=== PATIENT | male | born 1960 | race Caucasian/White ===

== ENCOUNTER 2017-03-15 17:00 | Emergency (ER) | payer OTHER ==
[2017-03-15] MEDS ORDERED: Sodium Chloride 0.9% 1,000 ML IV ONE (17:13)
--- NOTE | 2017-03-15 17:13 | ED Physician Chart ---
ED Chief Complaint/HPI - Patient Information Date Seen:: 03/15/17 Time Seen:: 17:00 Chief Complaint:: ALOC History of Present Illness:: onset x 3 hours of ALOC, AMS, and decreased activity due to ETOH drinking; pt denies LOC, trauma, H/As, neck pain, C/P, SOB, Abd. Pain, A/N/V/D/C, fever, chills, or urinary s/s Historian:: Patient, EMS Review:: Nurse's Note Reviewed, EMS run form Reviewed ED Review of Systems - Review of Systems General/Constitutional: No fever, No chills, No weight loss, No weakness, No diaphoresis, No edema, No loss of appetite Skin: No skin lesions, No rash, No bruising Head: No headache, No light-headedness Eyes: No loss of vision, No pain, No diplopia ENT: No earache, No nasal drainage, No sore throat, No tinnitus Neck: No neck pain, No swelling, No thyromegaly, No stiffness, No mass noted Cardio Vascular: No chest pain, No palpitations, No PND, No orthopnea, No edema Pulmonary: No SOB, No cough, No sputum, No wheezing GI: No nausea, No vomiting, No diarrhea, No pain, No melena, No hematochezia, No constipation, No hematemesis G/U: No dysuria, No frequency, No hematuria, No nacturia Musculoskeletal: No bone or joint pain, No back pain, No muscle pain Endocrine: No polyuria, No polydipsia Psychiatric: No prior psych history, No depression, No anxiety, No suicidal ideation, No homicidal ideation, No auditory hallucination, No visual hallucination Hematopoietic: No bruising, No lymphadenopathy Allergic/Immuno: No urticaria, No angioedema Neurological: No syncope, No focal symptoms, No weakness, No paresthesia, No headache, No seizure, No dizziness, No confusion, No vertigo ED Past Medical History - Past Medical History Obtainable: Yes Past Medical History: HTN Family History: HTN Social History: Smoker, Alcohol, No Drug Use, Single Surgical History: None Psychiatricy History: None Medication: Reviewed ED Physical Exam - Physical Examination General/Constitutional: Awake, Well-developed, well-nourished, Alert, No distress, GCS 15, Non-toxic appearing, Ambulatory Head: Atraumatic Eyes: Lids, conjuctiva normal, PERRL, EOMI Skin: Nl inspection, No rash, No skin lesions, No ecchymosis, Well hydrated, No lymphadenopathy ENMT: External ears, nose nl, TM canals nl, Nasal exam nl, Lips, teeth, gums nl , Oropharynx nl, Tonsils nl Neck: Nontender, Full ROM w/o pain, No JVD, No nuchal rigidity, No bruit, No mass, No stridor Respiratory: Nl effort/Exclusion, Clear to Auscultation, No Wheeze/Rhonchi/Rales Cardio Vascular: RRR, No murmur, gallop, rubs, NL S1 S2, Carotid/Femoral/Distal pulses equal bilaterally GI: No tenderness/rebounding/guarding, No organomegaly, No hernia, Normal BS's, Nondistended, No mass/bruits, No McBurney tenderness : No CVA tenderness Extremities: No tenderness or effusion, Full ROM, normal strength in all extremities, No edema, Normal digits & nails Neuro/Psych: Alert/oriented, DTR's symmetric, Normal sensory exam, Normal motor strength, Judgement/insight normal, Mood normal, Normal gait, No focal deficits Misc: Normal back, No paraspinal tenderness ED Septic Shock - . Is Septic Shock (SBP<90, OR Lactate>4 mmol\L) present?: No
[2017-03-15 18:00] LABS: % EOSINOPHILS 0.8 % (0.0-5.0); % LYMPHOCYTES 30.4 % (20.0-50.0); % MONOCYTES 6.8 % (2.0-10.0); BASOPHILE ABSOLUTE 0.1 Th/cumm (0-0.2); EOSINOPHILE ABSOLUTE 0.1 Th/cmm (0.1-0.4); HEMATOCRIT 41.3 % (41.0-60); MEAN CELL VOLUME 92.9 fl (80-99); MEAN CORPUSCULAR HEMOGLOBIN 31.6 pg (26.0-30.0); MEAN PLATELET VOLUME 7.8 fl; MONOCYTE ABSOLUTE 0.5 Th/cmm (0.3-1.0); PLATELET COUNT 260 Th/cmm (150-400); RED BLOOD COUNT 4.45 Mil/cmm (4.30-5.70); RED CELL DISTRIBUTION WIDTH 14.6 % (11.5-20.0); WHITE BLOOD COUNT 6.7 Th/cmm (4.8-10.8)
[2017-03-15 18:54] LABS: ALB/GLOB RATIO 1.4 (1.0-1.8); ALBUMIN 4.3 gm/dL (4.2-5.5); ALKALINE PHOSPHATASE 66 U/L (34-104); ANION GAP 16.3 (7.0-16.0); BILIRUBIN,TOTAL 0.4 mg/dL (0.3-1.0); BUN - UREA NITROGEN 13 mg/dL (7-25); CALCIUM SERUM 8.7 mg/dL (8.6-10.3); CARBON DIOXIDE 26.7 mEq/L (21.0-31.0); CHLORIDE 100 mEq/L (98-107); CREATININE - SERUM 0.8 mg/dL (0.7-1.3); GFR AFRICAN-AMERICAN > 60.0 ml/min (>90); GFR NON AFRICAN-AMERICAN > 60.0 ml/min; GLUCOSE 163 mg/dL (70-105); SGOT 37 U/L (13-39); SGPT/ALT 29 U/L (7-52); SODIUM SERUM 140 mEq/L (136-145); TOTAL PROTEIN,SERUM 7.4 gm/dL (6.0-8.3)
== END 2017-03-15 19:45 | disposition left against medical advice (07) ==
LOC: ER 17:00
DX: I10 Essential (primary) hypertension (principal); F17.200 Nicotine dependence, unspecified, uncomplicated; Z88.0 Allergy status to penicillin
CPT/HCPCS: 36415-UA; 80053-TC; 80320-TC; 85025-TC; J7030

== ENCOUNTER 2017-09-16 14:18 | Emergency (ER) | payer OTHER ==
--- NOTE | 2017-09-16 15:24 | ED Physician Chart ---
ED Chief Complaint/HPI - Patient Information Date Seen:: 09/16/17 Time Seen:: 14:50 Chief Complaint:: etoh intoxication Allergies:: Allergies Allergy/AdvReac Type Severity Reaction Status Date / Time morphine Allergy Verified 09/16/17 14:54 Penicillins [PCN] Allergy Verified 09/16/17 14:54 57 yr old male states drinking one fifth whiskey a day for the last few months pt states he has been hitting the bottle for the last few onths he says he uses alcohol to hide his depression and has been homeless and down and out Vitals:: Vital Signs - 8 hr 09/16/17 14:48 Temp 98.9 F HR 115 RR 16 BP 131/89 O2 Sat % 95 ED Review of Systems - Review of Systems General/Constitutional: No fever, No chills, No weight loss, No weakness, No diaphoresis, No edema, No loss of appetite Skin: No skin lesions, No rash, No bruising Head: No headache, No light-headedness Eyes: No loss of vision, No pain, No diplopia ENT: No earache, No nasal drainage, No sore throat, No tinnitus Neck: No neck pain, No swelling, No thyromegaly, No stiffness, No mass noted Cardio Vascular: No chest pain, No palpitations, No PND, No orthopnea, No edema Pulmonary: No SOB, No cough, No sputum, No wheezing GI: No nausea, No vomiting, No diarrhea, No pain, No melena, No hematochezia, No constipation, No hematemesis G/U: No dysuria, No frequency, No hematuria Musculoskeletal: No bone or joint pain, No back pain, No muscle pain Endocrine: No polyuria, No polydipsia Psychiatric: No prior psych history, No depression, No anxiety, No suicidal ideation Hematopoietic: No bruising, No lymphadenopathy Allergic/Immuno: No urticaria, No angioedema Neurological: Weakness, Headache ED Past Medical History - Past Medical History Past Medical History: HTN Family Medical History - Family Member Mother History Unknown: Yes ED Physical Exam - Physical Examination General/Constitutional: Awake (intoxicated disheveled) Head: Atraumatic Eyes: Lids, conjuctiva normal Skin: No rash ENMT: External ears, nose nl Neck: Nontender Respiratory: Nl effort/Exclusion Cardio Vascular: RRR, No murmur, gallop, rubs GI: No tenderness/rebounding/guarding : No CVA tenderness Extremities: Full ROM Neuro/Psych: Alert/oriented Other:: etoh intoxicated and disheveled ED Assessment - Assessment General Assessment: etoh intoxication ED Septic Shock - . Is Septic Shock (SBP<90, OR Lactate>4 mmol\L) present?: No - <6hrs of presentation: Vital Signs: Vital Signs - 8 hr 09/16/17 14:48 Temp 98.9 F HR 115 RR 16 BP 131/89 O2 Sat % 95 ED Reassessment (Disposition) - Diagnosis Diagnosis:: etoh intoxication depression - Patient Disposition Condition at Disposition:: Improved
[2017-09-16] MEDS ORDERED: Sodium Chloride 0.9% 1,000 ML IV ONE ×3 (15:28→17:54)
[2017-09-16] MEDS ORDERED: Multivitamin Inj 10 ML, Thiamine HCL 100 MG, Magnesium Sulfate 2 GM, Folic Acid 1 MG in... IV ONE (15:30)
[2017-09-16 15:39] LABS: % BASOPHILS 0.3 % (0.0-2.0); % EOSINOPHILS 0.7 % (0.0-5.0); % LYMPHOCYTES 33.1 % (20.0-50.0); % MONOCYTES 5.8 % (2.0-10.0); % NEUTROPHILS 60.1 % (40.0-80.0); HEMATOCRIT 43.5 % (41.0-60); LYMPHOCYTE ABSOLUTE 1.8 Th/cmm (1.5-3.0); MEAN CELL VOLUME 93.5 fl (80-99); MEAN CORPUSCULAR HEMOGLOBIN 32.2 pg (26.0-30.0); MEAN CORPUSCULAR HGB CONC 34.4 pg (28.0-36.0); MEAN PLATELET VOLUME 7.3 fl; MONOCYTE ABSOLUTE 0.3 Th/cmm (0.3-1.0); NEUTROPHILE ABSOLUTE 3.3 Th/cmm (1.8-8.0); PLATELET COUNT 241 Th/cmm (150-400); RED BLOOD COUNT 4.65 Mil/cmm (4.30-5.70); RED CELL DISTRIBUTION WIDTH 13.7 % (11.5-20.0); WHITE BLOOD COUNT 5.4 Th/cmm (4.8-10.8)
[2017-09-16 15:54] LABS: ALB/GLOB RATIO 1.3 (1.0-1.8); ALBUMIN 4.4 gm/dL (4.2-5.5); ALKALINE PHOSPHATASE 63 U/L (34-104); ANION GAP 20.8 (7.0-16.0); BILIRUBIN,TOTAL 0.4 mg/dL (0.3-1.0); BUN - UREA NITROGEN 14 mg/dL (7-25); CALCIUM SERUM 8.8 mg/dL (8.6-10.3); CARBON DIOXIDE 24.3 mEq/L (21.0-31.0); CHLORIDE 99 mEq/L (98-107); CREATININE - SERUM 0.9 mg/dL (0.7-1.3); CREATININE KINASE 146 U/L (30-223); GFR AFRICAN-AMERICAN > 60.0 ml/min (>90); GFR NON AFRICAN-AMERICAN > 60.0 ml/min; GLUCOSE 74 mg/dL (70-105); POTASSIUM SERUM 3.1 mEq/L (3.5-5.1); SGOT 104 U/L (13-39); SGPT/ALT 83 U/L (7-52); SODIUM SERUM 141 mEq/L (136-145); TOTAL PROTEIN,SERUM 7.7 gm/dL (6.0-8.3)
[2017-09-16] MEDS ORDERED: Multivitamin Inj 10 mL Vial IV ONE (16:16)
[2017-09-16 17:41] LABS: URINE SOURCE CLEAN C
[2017-09-16] MEDS ORDERED: Potassium Chloride 20 mEq ER Tab PO ONE ×2 (17:41→18:03)
[2017-09-16 17:49] LABS: URINE BILIRUBIN NEGATIVE (NEGATIVE); URINE BLOOD TRACE (NEGATIVE); URINE GLUCOSE (UA) NEGATIVE (NEGATIVE); URINE KETONE 40 mg/dL (NEGATIVE); URINE LEUKOCYTE ESTERASE NEGATIVE (NEGATIVE); URINE MICROSCOPIC INDICATED? YES; URINE NITRATE NEGATIVE (NEGATIVE); URINE PROTEIN 100 mg/dL (NEGATIVE); URINE UROBILINOGEN 0.2 E.U./dL (0.2 - 1.0)
[2017-09-16 17:50] LABS: URINE CLARITY CLEAR (CLEAR); URINE COLOR YELLOW
[2017-09-16 17:55] LABS: URINE BACTERIA OCCASIONAL /hpf (NONE SEEN); URINE EPITHELIAL CELLS FEW /lpf (FEW); URINE WBC 0-2 /hpf (0-5)
[2017-09-16] MEDS ORDERED: Acetaminophen 500 MG TAB PO ONE (22:04)
[2017-09-16] MEDS ORDERED: Acetaminophen 500 MG TAB ONE (22:07)
--- NOTE | 2017-09-17 08:29 | Diagnostic Imaging Report ---
CHEST X-RAY: AP view INDICATION: Shortness of breath COMPARISON: None FINDINGS: The patient is rotated limiting the examination. There is elevation of the right hemidiaphragm and accentuation of the right lower lobe lung markings. No focal consolidation or effusions. Heart size is normal. Degenerative changes of the spine are noted. IMPRESSION: Elevation of the right hemidiaphragm with accentuation of the right lower lung zone markings which may be due to atelectasis. Faint infiltrate is less likely. Note exam was limited due to rotation. When clinically diffusible PA and lateral views of the chest may be obtained for further assessment.
[2017-09-17] MEDS ORDERED: Potassium Chloride 20 mEq ER Tab PO SCH (09:00)
[2017-09-17 10:20] LABS: AMPHETAMINE URINE NEGATIVE (NEGATIVE)
[2017-09-17 10:21] LABS: BARBITURATES URINE NEGATIVE (NEGATIVE); BENZODIAZEPINES QUAL URINE NEGATIVE (NEGATIVE); CANNABINOID THC NEGATIVE (NEGATIVE); COCAINE METABOLITE QUAL URINE NEGATIVE (NEGATIVE); METHADONE URINE NEGATIVE (NEGATIVE); METHAMPHETAMINES QUAL URINE NEGATIVE (NEGATIVE); OPIATES (MORPHINE) QUAL. URINE NEGATIVE (NEGATIVE); PHENCYCLIDINE (PCP) URINE NEGATIVE (NEGATIVE)
[2017-09-17 15:09] LABS: TRICYCLICS (TCA) QUAL. URINE NEGATIVE (NEGATIVE)
== END 2017-09-17 13:15 | disposition home or self-care (01) ==
LOC: ER 14:18
DX: F10.129 Alcohol abuse with intoxication, unspecified (principal); F32.9 Major depressive disorder, single episode, unspecified; E87.6 Hypokalemia; R53.83 Other fatigue; E87.2 Acidosis; I10 Essential (primary) hypertension; Z59.0 Homelessness; Z88.0 Allergy status to penicillin; Z88.5 Allergy status to narcotic agent
CPT/HCPCS: 99285; 96374; 71045; 84484; 36415 ×2; 83605 ×4; 80307; 85025; 81001; 80320; 82550; 80053; 87040 ×2; J2060; J3411; J3475; J7030; X6598; Z7610

== ENCOUNTER 2018-08-07 16:57 | Emergency (ER) | payer OTHER ==
--- NOTE | 2018-08-07 17:41 | ED Physician Chart ---
ED Chief Complaint/HPI - Patient Information Date Seen:: 08/07/18 Time Seen:: 17:22 Chief Complaint:: Pt is intoxicated with ethanol History of Present Illness:: Brought in by ambulance because pt has been intoxicated with ethanol. Pt is alert and oriented x 3. Pt speaks clearly and denies any bodily pain or discomfort. Pt denies any depressed mood. No S.I. or H.I. Pt is not fully cooperative; thus, H & P are limited. Addendum: His sister Ms Liberty Rojas later arrived at the ER, reporting that pt phoned his cousin Florencio at about 1 pm today. Pt expressed suicidal ideation with plan to [place] to [place] himself. Allergies:: Allergies Allergy/AdvReac Type Severity Reaction Status Date / Time morphine Allergy Verified 09/16/17 14:54 Penicillins [PCN] Allergy Verified 09/16/17 14:54 Vitals:: see Nurse Note. Historian:: Patient Family MD/PCP:: unknown LMP:: N/A Review:: Nurse's Note Reviewed ED Review of Systems - Review of Systems General/Constitutional: Other (Pt does not cooperate for ROS.) ED Past Medical History - Past Medical History Past Medical History: Other (Pt does not cooperate to provide info on PMH.) Family History: Other (Pt does not cooperate to provide info on FHx.) Social History: Non Smoker, Alcohol (Pt has been informed about health risks associated with ethanol use and has been advised to stop. Pt has been encouraged to enroll in an alcohol detox. program. Pt acknowledges understanding.), No Drug Use, Other (Pt does not cooperate to provide most info on SHx.) Surgical History: other (Pt does not cooperate to provide info on Surgical Hx.) Psychiatricy History: Depression Medication: Reviewed Family Medical History - Family Member Mother History Unknown: Yes ED Physical Exam - Physical Examination General/Constitutional: Awake, Well-developed, well-nourished (male), Alert, No distress Other Gen/Cons comments:: Breathes comfortably, speaks clearly, but is not fully cooperative. Head: Atraumatic Eyes: Lids, conjuctiva normal, PERRL, EOMI Skin: No lymphadenopathy ENMT: External ears, nose nl, Nasal exam nl, Oropharynx nl Neck: Nontender, Full ROM w/o pain, No nuchal rigidity, No mass Respiratory: Nl effort/Exclusion, Clear to Auscultation Cardio Vascular: RRR, No murmur, gallop, rubs GI: No tenderness/rebounding/guarding, No organomegaly, Normal BS's, Nondistended, No mass/bruits Extremities: No tenderness or effusion, No edema Neuro/Psych: Alert/oriented (oriented x 3), No focal deficits ED Labs/Radiology/EKG Results - Lab Results Results: Laboratory Results - last 24 hr 08/07/18 08/07/18 18:00 18:00 WBC 7.1 RBC 4.94 Hgb 15.2 Hct 44.6 MCV 90.2 MCH 30.7 H MCHC Differential 34.0 RDW 14.6 Plt Count 235 MPV 7.6 Neutrophils % 65.4 Lymphocytes % 27.8 Monocytes % 5.8 Eosinophils % 0.1 Basophils % 0.0 Sodium 144 Potassium 3.3 L Chloride 101 Carbon Dioxide 23.8 Anion Gap 22.5 H BUN 14 Creatinine 0.7 Est GFR ( Amer) > 60.0 Est GFR (Non-Af Amer) > 60.0 BUN/Creatinine Ratio 20.0 Glucose 76 Calcium 9.3 Magnesium 2.2 Total Bilirubin 0.5 AST 48 H ALT 41 Alkaline Phosphatase 76 Total Protein 7.7 Albumin 4.5 Globulin 3.2 Albumin/Globulin Ratio 1.4 Ethyl Alcohol 383 H Laboratory Last Values WBC 7.1 Th/cmm (4.8-10.8) 08/07/18 18:00 RBC 4.94 Mil/cmm (4.30-5.70) 08/07/18 18:00 Hgb 15.2 gm/dL (12-16) 08/07/18 18:00 Hct 44.6 % (41.0-60) 08/07/18 18:00 MCV 90.2 fl (80-99) 08/07/18 18:00 MCH 30.7 pg (26.0-30.0) H 08/07/18 18:00 MCHC Differential 34.0 pg (28.0-36.0) 08/07/18 18:00 RDW 14.6 % (11.5-20.0) 08/07/18 18:00 Plt Count 235 Th/cmm (150-400) 08/07/18 18:00 MPV 7.6 fl 08/07/18 18:00 Neutrophils % 65.4 % (40.0-80.0) 08/07/18 18:00 Lymphocytes % 27.8 % (20.0-50.0) 08/07/18 18:00 Monocytes % 5.8 % (2.0-10.0) 08/07/18 18:00 Eosinophils % 0.1 % (0.0-5.0) 08/07/18 18:00 Basophils % 0.0 % (0.0-2.0) 08/07/18 18:00 PT 9.8 SECONDS (9.5-11.5) 08/07/18 18:00 INR 0.94 (0.5-1.4) 08/07/18 18:00 PTT (Actin FS) 24.3 SECONDS (26.0-38.0) L 08/07/18 18:00 Sodium 144 mEq/L (136-145) 08/07/18 18:00 Potassium 3.3 mEq/L (3.5-5.1) L 08/07/18 18:00 Chloride 101 mEq/L (98-107) 08/07/18 18:00 Carbon Dioxide 23.8 mEq/L (21.0-31.0) 08/07/18 18:00 Anion Gap 22.5 (7.0-16.0) H 08/07/18 18:00 BUN 14 mg/dL (7-25) 08/07/18 18:00 Creatinine 0.7 mg/dL (0.7-1.3) 08/07/18 18:00 Est GFR ( Amer) > 60.0 ml/min (>90) 08/07/18 18:00 Est GFR (Non-Af Amer) > 60.0 ml/min 08/07/18 18:00 BUN/Creatinine Ratio 20.0 08/07/18 18:00 Glucose 76 mg/dL (70-105) 08/07/18 18:00 Calcium 9.3 mg/dL (8.6-10.3) 08/07/18 18:00 Magnesium 2.2 mg/dL (1.9-2.7) 08/07/18 18:00 Total Bilirubin 0.5 mg/dL (0.3-1.0) 08/07/18 18:00 AST 48 U/L (13-39) H 08/07/18 18:00 ALT 41 U/L (7-52) 08/07/18 18:00 Alkaline Phosphatase 76 U/L (34-104) 08/07/18 18:00 Total Protein 7.7 gm/dL (6.0-8.3) 08/07/18 18:00 Albumin 4.5 gm/dL (4.2-5.5) 08/07/18 18:00 Globulin 3.2 gm/dL 08/07/18 18:00 Albumin/Globulin Ratio 1.4 (1.0-1.8) 08/07/18 18:00 TSH 0.04 uIU/ml (0.34-5.60) L 08/07/18 18:00 Salicylates < 25.0 mg/L (30.0-100.0) L 08/07/18 19:00 Urine Opiates Screen NEGATIVE (NEGATIVE) 08/07/18 20:46 Urine Methadone Screen NEGATIVE (NEGATIVE) 08/07/18 20:46 Acetaminophen < 10.0 ug/mL (10.0-30.0) L 08/07/18 19:00 Ur Barbiturates Screen NEGATIVE (NEGATIVE) 08/07/18 20:46 Ur Tricyclics Screen NEGATIVE (NEGATIVE) 08/07/18 20:46 Ur Phencyclidine Scrn NEGATIVE (NEGATIVE) 08/07/18 20:46 Amphetamines Screen NEGATIVE (NEGATIVE) 08/07/18 20:46 U Methamphetamines Scrn NEGATIVE (NEGATIVE) 08/07/18 20:46 U Benzodiazepines Scrn POSITIVE (NEGATIVE) H 08/07/18 20:46 U Cocaine Metab Screen NEGATIVE (NEGATIVE) 08/07/18 20:46 U Cannabinoids Screen NEGATIVE (NEGATIVE) 08/07/18 20:46 Ethyl Alcohol 156 mg/dL (0-10) H 08/08/18 04:10 ED Septic Shock - . Is Septic Shock (SBP<90, OR Lactate>4 mmol\\L) present?: No ED Reassessment (Disposition) - Reassessment Reassessment:: 1848 Pt's sister Ms. Liberty Rojas is at bedside. She related that pt phoned his cousin Florencio at about 1 pm today. Pt has had depressed mood with suicidal ideation and [place]. I have discussed with pt again who confirms that he does have suicidal ideation and plan that were stated by his sister Liberty. Pt denies homicidal ideation. 2305 Pt has been repeatedly. Pt remains stable and comfortable. Ethanol will be repeated at 0400 tomorrow for medical clearance for psych evaluation. 08/08/2018 @0610 Pt slept through the night uneventfully. Repeat ethanol level at 0410 was 156. Pt is stable and comfortable. Pt is medically cleared for psych evaluation. Case was discussed with Dr. Stubbs (? sp) at [facility] at about 0600. He stated that [facility] will send the psych team to have pt evaluated. 0656 Pt remains stable. Case has been signed off to Dr. Maxwell for continued care. - Diagnosis Diagnosis:: Ethanol intoxication. Mild hypokalemia. H/O bipolar disorder with suicidal ideation and plan.
[2018-08-07] MEDS ORDERED: Multivitamin Inj 10 ML, Thiamine HCL 100 MG, Magnesium Sulfate 2 GM, Folic Acid 1 MG in... IV ONE (17:46)
[2018-08-07] MEDS ORDERED: Multivitamin Inj 10 mL Vial IV ONE (18:13)
[2018-08-07] MEDS ORDERED: Thiamine 100 mg/mL 2mL Vial ONE (18:13)
[2018-08-07] MEDS ORDERED: Magnesium Sulfate 1 gm/2 mL 2mL Vial IV ONE (18:14)
[2018-08-07 18:27] LABS: ALB/GLOB RATIO 1.4 (1.0-1.8); ALBUMIN 4.5 gm/dL (4.2-5.5); ALKALINE PHOSPHATASE 76 U/L (34-104); ANION GAP 22.5 (7.0-16.0); BILIRUBIN,TOTAL 0.5 mg/dL (0.3-1.0); BUN - UREA NITROGEN 14 mg/dL (7-25); CALCIUM SERUM 9.3 mg/dL (8.6-10.3); CARBON DIOXIDE 23.8 mEq/L (21.0-31.0); CHLORIDE 101 mEq/L (98-107); CREATININE - SERUM 0.7 mg/dL (0.7-1.3); GFR AFRICAN-AMERICAN > 60.0 ml/min (>90); GFR NON AFRICAN-AMERICAN > 60.0 ml/min; GLUCOSE 76 mg/dL (70-105); MAGNESIUM 2.2 mg/dL (1.9-2.7); POTASSIUM SERUM 3.3 mEq/L (3.5-5.1); SGOT 48 U/L (13-39); SGPT/ALT 41 U/L (7-52); SODIUM SERUM 144 mEq/L (136-145); TOTAL PROTEIN,SERUM 7.7 gm/dL (6.0-8.3)
[2018-08-07 18:31] LABS: HEMATOCRIT 44.6 % (41.0-60); HEMOGLOBIN 15.2 gm/dL (12-16); MEAN CELL VOLUME 90.2 fl (80-99); MEAN CORPUSCULAR HEMOGLOBIN 30.7 pg (26.0-30.0); RED BLOOD COUNT 4.94 Mil/cmm (4.30-5.70); WHITE BLOOD COUNT 7.1 Th/cmm (4.8-10.8)
[2018-08-07 18:32] LABS: % EOSINOPHILS 0.1 % (0.0-5.0); % LYMPHOCYTES 27.8 % (20.0-50.0); % MONOCYTES 5.8 % (2.0-10.0); % NEUTROPHILS 65.4 % (40.0-80.0); PLATELET COUNT 235 Th/cmm (150-400); RED CELL DISTRIBUTION WIDTH 14.6 % (11.5-20.0)
[2018-08-07] MEDS ORDERED: Potassium Chloride 20 mEq ER Tab PO ONE ×2 (18:41→18:44)
[2018-08-07 19:00] LABS: INR 0.94 (0.5-1.4)
[2018-08-07 19:17] LABS: ACETAMINOPHEN < 10.0 ug/mL (10.0-30.0)
[2018-08-07 21:12] LABS: AMPHETAMINE URINE NEGATIVE (NEGATIVE); BARBITURATES URINE NEGATIVE (NEGATIVE); COCAINE METABOLITE QUAL URINE NEGATIVE (NEGATIVE); METHADONE URINE NEGATIVE (NEGATIVE); METHAMPHETAMINES QUAL URINE NEGATIVE (NEGATIVE); OPIATES (MORPHINE) QUAL. URINE NEGATIVE (NEGATIVE); PHENCYCLIDINE (PCP) URINE NEGATIVE (NEGATIVE); TRICYCLICS (TCA) QUAL. URINE NEGATIVE (NEGATIVE)
[2018-08-07 21:14] LABS: BENZODIAZEPINES QUAL URINE POSITIVE (NEGATIVE); CANNABINOID THC NEGATIVE (NEGATIVE)
== END 2018-08-08 16:30 ==
LOC: ER 16:57
DX: F10.129 Alcohol abuse with intoxication, unspecified (principal); E87.6 Hypokalemia; F31.9 Bipolar disorder, unspecified; R45.851 Suicidal ideations; Z88.0 Allergy status to penicillin; Z88.5 Allergy status to narcotic agent; Y90.8 Blood alcohol level of 240 mg/100 ml or more
CPT/HCPCS: 99285; 96365; 96366; 36415 ×2; 80307; 84443; 85025; 85610; 80329 ×2; 80320 ×2; 83735; 80053; J3411 ×2; J3475; J7030; X6226; X6598